=== PATIENT | female | born 1985 | race Hispanic/Latino ===

== ENCOUNTER 2018-12-31 10:30 | Emergency (ER) | payer SELFPAY ==
[2018-12-31] MEDS ORDERED: Bupivacaine 0.5% 10 ML VIAL ONE (10:58)
[2018-12-31] MEDS ORDERED: Bupivacaine 0.25% 10 ML VIAL ONE (10:58)
[2018-12-31] MEDS ORDERED: Ibuprofen 800 MG TAB ONE (11:45)
== END 2018-12-31 12:01 | disposition home or self-care (01) ==
LOC: ERS 10:30
DX: K04.7 Periapical abscess without sinus (principal); F17.200 Nicotine dependence, unspecified, uncomplicated
CPT/HCPCS: 40800; J3490; S0020